=== PATIENT | female | born 1980 | race Caucasian/White ===

== ENCOUNTER 2019-03-30 09:07 | Emergency (ER) | payer SELFPAY ==
[~2019-03-30] VITALS: Ht 162.6 cm; Wt 100.2 kg
[2019-03-30 09:46] VITALS: Ht 162.6 cm; Wt 100.2 kg
[2019-03-30 13:20] VITALS: BP 142/81
== END 2019-03-30 13:20 | disposition home or self-care (01) ==
LOC: ED 09:07
DX: R51 Headache (principal); R05 Cough; H02.401 Unspecified ptosis of right eyelid; I10 Essential (primary) hypertension; Z59.0 Homelessness
CPT/HCPCS: J1100; J1200; J2765; J3475; J7030; Q0092